=== PATIENT | female | born 1990 | race Asian ===

== ENCOUNTER 2018-01-20 04:33 | Emergency (ER) | payer SELFPAY ==
[~2018-01-20] VITALS: Ht 172.7 cm; Wt 78.0 kg
[2018-01-20] MEDS ORDERED: HYDROCODONE/ACETAMINOPHEN 5/325MG TABLET PO ONE (06:45)
[2018-01-20] MEDS ORDERED: TETRACAINE 0.5% OPHTH DROPS 4ML BOTHEYE ONE (06:45)
[2018-01-20] MEDS ORDERED: FLUORESCEIN SODIUM 1MG/STRIP BOTHEYE ONE (10:00)
[2018-01-20 10:50] VITALS: BP 113/58
== END 2018-01-20 11:00 | disposition home or self-care (01) ==
LOC: ER 04:33
DX: H10.213 Acute toxic conjunctivitis, bilateral (principal)
CPT/HCPCS: 99284